=== PATIENT | male | born 1995 | race Caucasian/White ===

== ENCOUNTER 2018-09-26 18:18 | Emergency (ER) | payer BC, OTHER ==
[~2018-09-26] VITALS: Ht 185.4 cm; Wt 77.1 kg
[2018-09-26] MEDS ORDERED: methylPREDNISolone 125 MG (Solu-MEDROL) VIAL IVP ONE (18:45)
[2018-09-26] MEDS ORDERED: diphenhydrAMINE 25 MG TAB (BENADRYL) PO ONE (18:45)
[2018-09-26] MEDS ORDERED: FAMOTIDINE 20MG/2ML IV (PEPCID) IVP ONE (18:45)
[2018-09-26 19:17] LABS: BASOPHILS % (AUTO) 0 % (0-10); EOSINOPHILS # (AUTO) 0.2 10^3/uL (0.0-0.3); EOSINOPHILS % (AUTO) 2 % (0-10); HEMATOCRIT 45 % (40-54); HEMOGLOBIN 15.6 G/DL (13.3-17.7); LYMPHOCYTES # (AUTO) 1.6 X 10^3 (1.0-4.0); LYMPHOCYTES % (AUTO) 18 % (12-44); MEAN CORPUSCULAR HEMOGLOBIN 31 PG (25-34); MEAN CORPUSCULAR HGB CONC 35 G/DL (32-36); MEAN CORPUSCULAR VOLUME 87 FL (80-99); MEAN PLATELET VOLUME 12.6 FL (7.4-10.4); MONOCYTES # (AUTO) 0.4 X 10^3 (0.0-1.0); MONOCYTES % (AUTO) 4 % (0-12); NEUTROPHILS % (AUTO) 76 % (42-75); PLATELET COUNT 194 10^3/uL (130-400); RED BLOOD COUNT 5.11 10^6/uL (4.35-5.85); RED CELL DISTRIBUTION WIDTH 13.9 % (10.0-14.5); WHITE BLOOD COUNT 9.3 10^3/uL (4.3-11.0)
[2018-09-26 19:31] LABS: ALANINE AMINOTRANSFERASE 26 U/L (0-55); ALBUMIN 4.9 GM/DL (3.2-4.5); ALKALINE PHOSPHATASE 78 U/L (40-136); BILIRUBIN,TOTAL 0.5 MG/DL (0.1-1.0); BUN/CREATININE RATIO 13; CALCIUM 10.1 MG/DL (8.5-10.1); CARBON DIOXIDE 22 MMOL/L (21-32); CHLORIDE 105 MMOL/L (98-107); CREATININE SERUM 1.25 MG/DL (0.60-1.30); GFR ESTIMATED > 60; GLUCOSE 142 MG/DL (70-105); POTASSIUM 3.7 MMOL/L (3.6-5.0); SODIUM 140 MMOL/L (135-145); TOTAL PROTEIN 7.8 GM/DL (6.4-8.2)
--- NOTE | 2018-09-26 20:04 | ED Integumentary General ---
General Chief Complaint: Allergic Reaction Stated Complaint: HIVES/THROAT DISCOMFORT Nursing Triage Note: Pt ambulated to rm 7 w/o difficulty. Pt c/o hives off and on since Wednesday. Pt came to ED tonight because pt states it felt as if throat was closing and pt was wheezing. Pt stated that the difficulty breathing resolved prior to arrival at ED. Pt presented with hives to the forehead, chest and abdomen and neck. Source: patient Exam Limitations: no limitations History of Present Illness Date Seen by Provider: Sep 26, 2018 Time Seen by Provider: 18:25 Initial Comments Patient is a 22-year-old male who presents to the emergency room accompanied by his girlfriend with reports of hives off and on since Wednesday of last week. Patient reports that the hives came back tonight but felt like his throat was closing and had some wheezing. He reports taking Amalia tonight prior to arrival and that seemed to resolve the wheezing and shortness of breath. Does have hives to his forehead right side of his chest abdomen and neck. There is no tongue swelling or lip swelling. He is in no distress or anaphylaxis on arrival to the emergency room. Timing/Duration: changing over time Location: face, torso Associated Symptoms: rash (high) Allergies and Home Medications Allergies Coded Allergies: No Known Drug Allergies (Unverified , 09/26/18) Patient Home Medication List Home Medication List Reviewed: Yes Review of Systems Review of Systems Constitutional: no symptoms reported, see HPI Past Tlppvtp-Mhcfby-Txcilr Hx Past Med/Social Hx: Reviewed Nursing Past Med/Soc Hx Patient Social History Alcohol Use: Occasionally Uses Recreational Drug Use: No Smoking Status: Current Someday Smoker Type Used: Cigarettes 2nd Hand Smoke Exposure: Yes Recent Foreign Travel: No Contact w/Someone Who Travel: No Recent Infectious Disease Expo: No Recent Hopitalizations: No Seasonal Allergies Seasonal Allergies: No Past Medical History Surgeries: No Respiratory: No Cardiac: No Neurological: No Genitourinary: No Gastrointestinal: No Musculoskeletal: No Endocrine: No HEENT: No Cancer: No Psychosocial: No Integumentary: No Blood Disorders: No Family Medical History Reviewed Nursing Family Hx Physical Exam Vital Signs Vital Signs - First Documented 09/26/18 18:25 Temp 99.0 Pulse 87 Resp 15 B/P (MAP) 151/111 (124) Pulse Ox 95 Capillary Refill : Less Than 3 Seconds General Appearance: WD/WN, no apparent distress HEENT: PERRL/EOMI, normal ENT inspection, TMs normal, pharynx normal Neck: non-tender, full range of motion, supple, normal inspection Cardiovascular: normal peripheral pulses, regular rate, rhythm, no edema, no gallop, no JVD, no murmur Respiratory: chest non-tender, lungs clear, normal breath sounds, no respiratory distress, no accessory muscle use Gastrointestinal: normal bowel sounds, non tender, soft, no organomegaly, no pulsatile mass Extremities: normal capillary refill Neurologic/Psychiatric: alert, normal mood/affect, oriented x 3 Skin: normal color, warm/dry Skin Problem Location: face, neck, upper extremities, torso Skin Problem Character: rash (hives) Progress/Results/Core Measures Results/Orders Lab Results Laboratory Tests Test 09/26/18 18:44 Range/Units White Blood Count 9.3 4.3-11.0 10^3/uL Red Blood Count 5.11 4.35-5.85 10^6/uL Hemoglobin 15.6 13.3-17.7 G/DL Hematocrit 45 40-54 % Mean Corpuscular Volume 87 80-99 FL Mean Corpuscular Hemoglobin 31 25-34 PG Mean Corpuscular Hemoglobin Concent 35 32-36 G/DL Red Cell Distribution Width 13.9 10.0-14.5 % Platelet Count 194 130-400 10^3/uL Mean Platelet Volume 12.6 H 7.4-10.4 FL Neutrophils (%) (Auto) 76 H 42-75 % Lymphocytes (%) (Auto) 18 12-44 % Monocytes (%) (Auto) 4 0-12 % Eosinophils (%) (Auto) 2 0-10 % Basophils (%) (Auto) 0 0-10 % Neutrophils # (Auto) 7.0 1.8-7.8 X 10^3 Lymphocytes # (Auto) 1.6 1.0-4.0 X 10^3 Monocytes # (Auto) 0.4 0.0-1.0 X 10^3 Eosinophils # (Auto) 0.2 0.0-0.3 10^3/uL Basophils # (Auto) 0.0 0.0-0.1 10^3/uL Sodium Level 140 135-145 MMOL/L Potassium Level 3.7 3.6-5.0 MMOL/L Chloride Level 105 98-107 MMOL/L Carbon Dioxide Level 22 21-32 MMOL/L Anion Gap 13 5-14 MMOL/L Blood Urea Nitrogen 16 7-18 MG/DL Creatinine 1.25 0.60-1.30 MG/DL Estimat Glomerular Filtration Rate > 60 BUN/Creatinine Ratio 13 Glucose Level 142 H 70-105 MG/DL Calcium Level 10.1 8.5-10.1 MG/DL Corrected Calcium 8.5-10.1 MG/DL Total Bilirubin 0.5 0.1-1.0 MG/DL Aspartate Amino Transf (AST/SGOT) 27 5-34 U/L Alanine Aminotransferase (ALT/SGPT) 26 0-55 U/L Alkaline Phosphatase 78 40-136 U/L Total Protein 7.8 6.4-8.2 GM/DL Albumin 4.9 H 3.2-4.5 GM/DL My Orders Orders - MAX LACEY Diphenhydramine Tablet (Benadryl Tablet) (09/26/18 18:45) Famotidine Injection (Pepcid Injection) (09/26/18 18:45) Methylprednisolone Sod Succ (Solu-Medrol (09/26/18 18:45) Cbc With Automated Diff (09/26/18 19:10) Comprehensive Metabolic Panel (09/26/18 19:10) Medications Given in ED Current Medications Medications Dose Ordered Sig/Prabhu Route Start Time Stop Time Status Last Admin Dose Admin Diphenhydramine HCl 50 mg ONCE ONCE PO 09/26/18 18:45 09/26/18 18:46 DC 09/26/18 18:51 50 MG Famotidine 20 mg ONCE ONCE IVP 09/26/18 18:45 09/26/18 18:46 DC 09/26/18 18:52 20 MG Methylprednisolone Sodium Succinate 125 mg ONCE ONCE IVP 09/26/18 18:45 09/26/18 18:46 DC 09/26/18 18:52 125 MG Vital Signs/I&O 09/26/18 18:25 Temp 99.0 Pulse 87 Resp 15 B/P (MAP) 151/111 (124) Pulse Ox 95 Blood Pressure Mean: 124 Progress Progress Note : Time: 19:59 Progress Note I have seen and evaluated the patient. His symptoms have resolved, the hives are gone, he remains free of wheezing or shortness of breath throughout his stay in the emergency room. He is feeling much better at this time. Given his recurrent episodes I will be placing him on a steroid burst pack for 5 days. He agrees with plan of care, plans for discharge, return precautions were given. Departure Impression Primary Impression: Allergic reaction Disposition: 01 HOME, SELF-CARE Condition: Stable/Unchanged Departure-Patient Inst. Decision time for Depature: 20:03 Referrals: NO,LOCAL PHYSICIAN (PCP) Primary Care Physician Patient Instructions: Skin Rash (DC) Add. Discharge Instructions: Take medication as directed. Continue to use the Amalia [id number] add Benadryl 25-50 mg every 4-6 hours as needed for hives or recurrent episodes. Follow-up with your primary care provider within 1 week for recheck. Return back to the emergency room for any worsening symptoms, shortness of breath, facial swelling, symptoms that will not go a with medications, or any other concerns as needed. All discharge instructions reviewed with patient and/or family. Voiced understanding. Scripts Prednisone (Prednisone) 20 Mg Tab 40 MG PO DAILY for 5 Days, #10 TAB Prov: MAX LACEY 09/26/18 MAX LACEY Sep 26, 2018 20:04
[2018-09-26] MEDS ORDERED: PRD20T PO (20:05)
[2018-09-26 20:15] VITALS: BP 142/81
== END 2018-09-26 20:15 | disposition home or self-care (01) ==
LOC: ER 18:19
DX: T78.40XA Allergy, unspecified, initial encounter (principal); F17.210 Nicotine dependence, cigarettes, uncomplicated
CPT/HCPCS: 36415; 80053; 85025; 96374; 96375